=== PATIENT | male | born 1965 | race Caucasian/White ===

== ENCOUNTER 2018-09-01 06:05 | Inpatient (IN) | payer OTHER | END 2018-09-01 08:00 | disposition home or self-care (01) | LOC: FM/S 06:05 ==

== ENCOUNTER 2018-10-06 07:36 | Inpatient (IN) | payer OTHER ==
[2018-10-02 16:19] VITALS: BMI 42.9
[2018-10-06] MEDS ORDERED: PROMETHAZINE HCL 25 MG/1 ML VIAL IVPUSH PRN (07:47)
--- NOTE | 2018-10-06 08:10 | HP ---
Admitting History and Physical - Admission Chief Complaint: Morbid obesity History Source: Patient Limitations to Obtaining History: No Limitations - Past Medical History Cardiovascular: Yes: HTN, Hyperlipdemia Additional Past Medical History: Right hand bacterial infection Left orbital trauma at 5 years old - Past Surgical History Additional Past Surgical History: Left orbit trauma- reconstruction - Smoking History Smoking history: Current some day smoker Have you smoked in the past 12 months: Yes Aproximately how many cigarettes per day: 4 - Alcohol/Substance Use Hx Alcohol Use: Yes (RARE) Home Medications - Allergies Allergies/Adverse Reactions: Allergies Allergy/AdvReac Type Severity Reaction Status Date / Time No Known Allergies Allergy Verified 09/29/18 15:13 - Home Medications Home Medications: Ambulatory Orders Amlodipine Besylate [Norvasc -] 20 mg PO DAILY 08/29/18 Fenofibrate 40 mg PO DAILY 08/29/18 Aspirin [ASA -] 325 mg PO DAILY 09/29/18 Famotidine [Pepcid] 20 mg PO BID #60 tablet 10/06/18 Oxycodone HCl/Acetaminophen [Percocet 5-325 mg Tablet] 1 - 2 tab PO Q6H #28 tab MDD 4 10/06/18 Family Disease History - Family Disease History Family History: Unremarkable Review of Systems - Review of Systems Constitutional: denies: Chills, Fever HENT: reports: No Symptoms Neck: reports: No Symptoms Cardiovascular: reports: No Symptoms Respiratory: reports: No Symptoms Gastrointestinal: reports: No Symptoms Neurological: reports: No Symptoms Pain Intensity: 0 Physical Examination Constitutional: Yes: Calm, Obese HENT: Yes: WNL Cardiovascular: Yes: WNL Respiratory: Yes: WNL Gastrointestinal: Yes: Soft, Abdomen, Obese. No: Tenderness Neurological: Yes: Alert, Oriented Problem List - Problems (1) Morbid obesity due to excess calories Code(s): E66.01 - MORBID (SEVERE) OBESITY DUE TO EXCESS CALORIES (2) Hypertension Code(s): I10 - ESSENTIAL (PRIMARY) HYPERTENSION Qualifiers: Hypertension type: unspecified Qualified Code(s): I10 - Essential (primary ) hypertension (3) Hyperlipidemia Code(s): E78.5 - HYPERLIPIDEMIA, UNSPECIFIED Qualifiers: Hyperlipidemia type: unspecified Qualified Code(s): E78.5 - Hyperlipidemia , unspecified Assessment/Plan Laparoscopic possible open vertical sleeve gastrectomy possible liver biopsy possible upper endoscopy
[2018-10-06] MEDS ORDERED: MIDAZOLAM HCL 2 MG/2 ML SINGLE DOSE VIAL ONE (09:53)
[2018-10-06] MEDS ORDERED: PROPOFOL 20 ML ONE ×2 (09:53→12:01)
[2018-10-06] MEDS ORDERED: fentaNYL CITRATE 250 MCG/5 ML VIAL ONE (09:53)
[2018-10-06] MEDS ORDERED: ceFAZolin SODIUM 1 GM VIAL ONE (09:53)
[2018-10-06] MEDS ORDERED: ROCURONIUM BROMIDE 50 MG/5 ML VIAL ONE (09:53)
[2018-10-06] MEDS ORDERED: NEOSTIGMINE METHYLSULFATE 0.5 MG/ML - 10 ML MDV ONE ×2 (09:53→11:00)
[2018-10-06] MEDS ORDERED: ePHEDrine SULFATE 50 MG/1 ML AMPULE ONE (09:54)
[2018-10-06] MEDS ORDERED: DEXAMETHASONE SOD PHOSPHATE 4 MG/1 ML VIAL ONE (09:54)
[2018-10-06] MEDS ORDERED: ONDANSETRON 4 MG/2 ML VIAL ONE ×2 (09:54)
[2018-10-06] MEDS ORDERED: SUCCINYLCHOLINE CHLORIDE 200 MG/10 ML VIAL ONE (09:56)
[2018-10-06] MEDS ORDERED: DESFLURANE GAS 240 ML BOTTLE IH ONE (10:45)
[2018-10-06] MEDS ORDERED: BUPIVACAINE HCL/PF 2.5 MG/ML - 30 ML VIAL IJ ONE (10:55)
[2018-10-06] MEDS ORDERED: GLYCOPYRROLATE 0.2 MG/1 ML VIAL ONE ×3 (11:00)
[2018-10-06] MEDS ORDERED: BUPIVACAINE HCL/PF 0.25% (2.5MG/ML) 10 ML VIAL IJ ONE (11:40)
[2018-10-06] MEDS ORDERED: ACETAMINOPHEN INJECTION 100 ML IVPB ONE (11:47)
[2018-10-06] MEDS ORDERED: METOCLOPRAMIDE HCL INJECTION 10 MG/2 ML VIAL ONE (11:47)
[2018-10-06] MEDS ORDERED: FAMOTIDINE 20 MG/50 ML IVPB 20 MG/50 ML MG IVPB ONE (11:47)
--- NOTE | 2018-10-06 11:50 | OP ---
Operative Note - Note: Operative Date: 10/06/18 Pre-Operative Diagnosis: Morbid obesity. Hypertension. BMI 42.9 Operation: Diagnostic laparoscopy. Laparoscopic vertical sleeve gastrectomy. Laparoscopic wedge liver biopsy Post-Operative Diagnosis: Same as Pre-op (as well as hepatomegaly) Surgeon: Yasir Martel Return Checker: Artur Mcmillan Anesthesia: General Specimens Removed: Greater curvature of stomach. liver biopsy Estimated Blood Loss (mls): 30 Drains & Tubes with Location: 36 fr bougie Operative Report Dictated: Yes
[2018-10-06] MEDS ORDERED: FUROSEMIDE 40 MG/4 ML INJECTABLE VIAL ONE (12:21)
--- NOTE | 2018-10-06 13:35 | SPEC ---
DATE OF OPERATION: 10/06/2018 SURGEON: Yasir Martel MD PARAPROFESSIONAL INTERPRETER: Artur Mcmillan MD PREOPERATIVE DIAGNOSES: 1. Morbid obesity. 2. Hypertension. 3. Body mass index of 42.9. POSTOPERATIVE DIAGNOSES: 1. Morbid obesity. 2. Hypertension. 3. Body mass index of 42.9. 4. Hepatomegaly. PROCEDURE: 1. Diagnostic laparoscopy. 2. Laparoscopic vertical sleeve gastrectomy. 3. Laparoscopic wedge liver biopsy. SPECIMENS: 1. Greater curvature of the stomach. 2. Liver biopsy. ESTIMATED BLOOD LOSS: 30 mL. DRAIN: None. ANESTHESIA: GET. BOUGIE SIZE: [id number]. REASON FOR PROCEDURE: This is a 53-year-old male who presents for weight loss options. After describing different options, he decided to proceed with laparoscopic, possible open, vertical sleeve gastrectomy, possible liver biopsy, and upper endoscopy. RISKS AND BENEFITS: After describing the different options for weight loss management, the patient decided to proceed with a laparoscopic, possible open vertical sleeve gastrectomy. The patient was seen by the respective subspecialties and cleared for surgery. The risks and benefits of the procedure were explained. These included bleeding, infection, hernia, LA, DVT, PE, injury to surrounding structures including the liver, colon, bowel, spleen, esophagus, vessel injury, nerve injury, weight regain, gastric leak, staple line leak, sleeve leak, obstruction, vitamin deficiency, hair loss and as some of the possible complications. The patient understood and signed informed consent. DESCRIPTION OF PROCEDURE: The patient was placed supine on the operating room table. The patient underwent general endotracheal intubation. The arms were brought out at 90 degrees and secured. A footboard was placed and the legs were secured laterally with padding. The abdomen was prepped and draped in the usual sterile fashion. A timeout was performed. An incision was made in the left upper quadrant and a Veress needle inserted. Pneumoperitoneum was established. Subsequently, the Veress needle was removed and a 5-mm trocar was placed under direct visualization with the laparoscope. The laparoscopic camera was then inserted and inspection of the abdominal cavity was performed. An incision was then made in the supraumbilical area and a 15-mm trocar was placed under direct visualization. A 5-mm trocar was then placed in the right upper quadrant and a 5-mm trocar was placed below the left subcostal margin. A stab wound was made in the subxiphoid area and a Cele clamp inserted and removed to dilate the tract. A Kae liver retractor was inserted. The post was secured at the bedside by the nursing staff. The patient was placed in steep reverse Trendelenburg position and the Kae liver retractor was used to secure the liver towards the anterior abdominal wall. The pylorus was identified and 6 cm proximal to it, the lesser sac was entered using the LigaSure device. All lateral attachments to the greater curvature of the stomach, including the short gastric vessels, were ligated using the LigaSure device toward the gastrosplenic and gastrophrenic ligaments. Once this was done in its entirety, it was confirmed that all tubes within the nasal or oropharyngeal cavity, including a temperature probe, was removed by Anesthesia. The bougie was then inserted by Anesthesia. Transection of the stomach was then begun staying adjacent to the bougie but away from the angularis. Transection of the stomach was performed near the portion of the stomach where the lesser sac was entered. Two laparoscopic Endo-RADHA black skye were used at this location. Laparoscopic Endo RADHA purple staple loads were then used for the remainder of the transection until the greater curvature of the stomach was fully transected. This was done staying close to the bougie. Care was taken to stay away from the angle of His cephalad. The staple line was then inspected. Hemostasis was identified. A leak test was then performed. It was clamped distally to the staple line. Irrigation solution was placed in the left upper quadrant and air was insufflated by Anesthesia into the sleeve. No leaks were identified. No obstruction was identified. This was done through the entirety of the staple line. In addition, an upper endoscopy was performed. The endoscope was placed into the patients mouth and the entirety of the esophagus, GE junction, gastric pouch and staple line were inspected. No obstruction or leak was noted. The stomach was suctioned and the endoscope removed fully intact. At this point, the irrigation solution was suctioned and again, hemostasis was noted. A wedge liver biopsy was then performed. The left lobe of the liver was identified and a portion of the edge was grasped. Using electrocautery, a wedge of the liver was excised. This was removed and sent off the field as specimen. Hemostasis at the site of the wedge liver biopsy was attained using electrocautery. The 15-mm supraumbilical trocar was then removed and the greater curvature specimen removed from the site using a sponge stick mendez. The specimen was inspected and a Veress needle inserted. The specimen insufflated adequately and no leak was identified. The staple line was noted to be intact. A Casimiro-Edie device was then used to close the fascia with a 0 Vicryl suture at the site. Again, hemostasis was noted. The Kae liver retractor was then removed under direct visualization. Pneumoperitoneum was desufflated and the fascial sutures were secured. Hemostasis was noted at all incision sites and Marcaine was injected at all incision sites. All incision sites were closed using 4-0 Biosyn. Sterile dressings were applied. The patient tolerated the procedure well and was transferred to the recovery room in stable condition. The patient was transferred to telemetry for further monitoring. Paul TORRES/[id number]
[2018-10-06 14:22] LABS: HEMATOCRIT 40.4 % (35.4-49); HEMOGLOBIN 13.4 GM/dl (11.7-16.9); MCHC 33.2 g/dl (32.0-35.9); MEAN CELL VOLUME 87.6 fl (80-96); PLATELET COUNT 273 K/MM3 (134-434); RBC 4.62 M/mm3 (4.00-5.60); RDW 13.5 % (11.9-15.9); WHITE BLOOD COUNT 12.4 K/mm3 (4.0-10.8)
[2018-10-06 14:46] LABS: ALBUMIN 4.2 g/dl (3.4-5.0); ALK PHOS 29 U/L (45-117); ANION GAP 12 MMOL/L (8-16); BILIRUBIN,TOTAL 0.4 mg/dl (0.2-1); BLOOD UREA NITROGEN 23 mg/dl (7-18); CALCIUM 8.4 mg/dl (8.5-10); CHLORIDE 100 mmol/L (98-107); CO2 24 mmol/L (21-32); CREATININE 1.4 mg/dl (0.55-1.3); GLUCOSE,RANDOM 165 mg/dl (74-106); POTASSIUM 4.4 mmol/L (3.5-5.1); SGOT/AST 201 U/L (15-37); SGPT/ALT 237 U/L (13-61); SODIUM 136 mmol/L (136-145); TOT PROT 7.4 g/dl (6.4-8.2)
[2018-10-06] MEDS: HYDROmorphone HCL CARPU-JECT 2 MG/1 ML DISP.SYRIN IVPB PRN (18:16)
[2018-10-06] MEDS: ONDANSETRON 4 MG/2 ML VIAL IVPUSH SCH ×3 (18:23→23:47)
[2018-10-06] MEDS: METOCLOPRAMIDE HCL INJECTION 10 MG/2 ML VIAL IVPUSH SCH ×2 (18:23→23:47)
[2018-10-06] MEDS: ACETAMINOPHEN 1000 MG/100 ML VIAL (NON FORMULARY) IVPB SCH ×2 (18:24→23:47)
[2018-10-06] MEDS: ENOXAPARIN NA (PORCINE) 40 MG/0.4 ML DISP.SYRIN SQ SCH (21:21)
[2018-10-06] MEDS: FAMOTIDINE 20 MG/50 ML IVPB 20 MG/50 ML MG IVPB SCH (21:21)
[2018-10-07] MEDS: HYDROmorphone HCL CARPU-JECT 2 MG/1 ML DISP.SYRIN IVPB PRN (05:00)
[2018-10-07] MEDS ORDERED: METOCLOPRAMIDE HCL INJECTION 10 MG/2 ML VIAL ONE (05:58)
[2018-10-07] MEDS: ACETAMINOPHEN 1000 MG/100 ML VIAL (NON FORMULARY) IVPB SCH ×2 (06:10→08:14)
[2018-10-07] MEDS: ONDANSETRON 4 MG/2 ML VIAL IVPUSH SCH ×7 (06:10→23:58)
[2018-10-07] MEDS: METOCLOPRAMIDE HCL INJECTION 10 MG/2 ML VIAL IVPUSH SCH ×5 (06:10→23:58)
[2018-10-07 07:02] LABS: HEMATOCRIT 36.7 % (35.4-49); HEMOGLOBIN 12.4 GM/dl (11.7-16.9); MCH 29.4 pg (25.7-33.7); MCHC 33.8 g/dl (32.0-35.9); MEAN PLT VOLUME 7.6 fl (7.5-11.1); PLATELET COUNT 274 K/MM3 (134-434); RBC 4.21 M/mm3 (4.00-5.60); RDW 13.5 % (11.9-15.9); WHITE BLOOD COUNT 12.3 K/mm3 (4.0-10.8)
[2018-10-07 07:14] LABS: ALBUMIN 3.8 g/dl (3.4-5.0); ALK PHOS 27 U/L (45-117); ANION GAP 10 MMOL/L (8-16); BILIRUBIN,TOTAL 0.6 mg/dl (0.2-1); BLOOD UREA NITROGEN 22 mg/dl (7-18); CALCIUM 8.7 mg/dl (8.5-10); CHLORIDE 101 mmol/L (98-107); CO2 27 mmol/L (21-32); CREATININE 1.1 mg/dl (0.55-1.3); GLUCOSE,RANDOM 131 mg/dl (74-106); POTASSIUM 4.3 mmol/L (3.5-5.1); SGOT/AST 112 U/L (15-37); SGPT/ALT 178 U/L (13-61); SODIUM 138 mmol/L (136-145); TOT PROT 7.1 g/dl (6.4-8.2)
[2018-10-07] MEDS: SODIUM CHLORIDE 1,000 ML IV SCH ×3 (08:14→15:30)
--- NOTE | 2018-10-07 09:05 | PN ---
Progress Note (short form) - Note Progress Note: ANESTHESIA POSTOP 53 YO male s/p lap gastric sleeve and GETA Patient sitting comfortably in chair. No complaints. Says he's grateful for everyone's care. VSS, Afebrile Encouraged IS and ambulation. No anesthetic complications
[2018-10-07] MEDS: FAMOTIDINE 20 MG/50 ML IVPB 20 MG/50 ML MG IVPB SCH ×2 (09:29→21:01)
[2018-10-07] MEDS: ENOXAPARIN NA (PORCINE) 40 MG/0.4 ML DISP.SYRIN SQ SCH ×2 (09:29→21:01)
[2018-10-07] MEDS ORDERED: oxyCODONE HCL 5 MG TABLET PO PRN (14:18)
--- NOTE | 2018-10-07 14:38 | PN ---
Progress Note (short form) - Note Progress Note: POD 1 Pain controlled No nausea Vital Signs Period Temp Pulse Resp BP Sys/Cerrato Pulse Ox Last 24 Hr 95 F-98.5 F 75-86 16-20 119-152/64-80 90-98 O2 saturation 99% on 4 liters O2; O2 saturation 85-88% on room air CBC,CMP WBC 12.3 K/mm3 (4.0-10.8) H 10/07/18 06:30 RBC 4.21 M/mm3 (4.00-5.60) 10/07/18 06:30 Hgb 12.4 GM/dl (11.7-16.9) 10/07/18 06:30 Hct 36.7 % (35.4-49) 10/07/18 06:30 MCV 87.0 fl (80-96) 10/07/18 06:30 MCH 29.4 pg (25.7-33.7) 10/07/18 06:30 MCHC 33.8 g/dl (32.0-35.9) 10/07/18 06:30 RDW 13.5 % (11.9-15.9) 10/07/18 06:30 Plt Count 274 K/MM3 (134-434) 10/07/18 06:30 MPV 7.6 fl (7.5-11.1) 10/07/18 06:30 Sodium 138 mmol/L (136-145) 10/07/18 06:30 Potassium 4.3 mmol/L (3.5-5.1) 10/07/18 06:30 Chloride 101 mmol/L (98-107) 10/07/18 06:30 Carbon Dioxide 27 mmol/L (21-32) 10/07/18 06:30 Anion Gap 10 MMOL/L (8-16) 10/07/18 06:30 BUN 22 mg/dl (7-18) H 10/07/18 06:30 Creatinine 1.1 mg/dl (0.55-1.3) 10/07/18 06:30 Creat Clearance w eGFR 70.29 (>60) 10/07/18 06:30 Random Glucose 131 mg/dl (74-106) H 10/07/18 06:30 Calcium 8.7 mg/dl (8.5-10) 10/07/18 06:30 Total Bilirubin 0.6 mg/dl (0.2-1) 10/07/18 06:30 AST 112 U/L (15-37) H 10/07/18 06:30 ALT 178 U/L (13-61) H 10/07/18 06:30 Alkaline Phosphatase 27 U/L (45-117) L 10/07/18 06:30 Total Protein 7.1 g/dl (6.4-8.2) 10/07/18 06:30 Albumin 3.8 g/dl (3.4-5.0) 10/07/18 06:30 UGI: no leak/obstruction Clears Spoke with Dr Camarillo - pulmonology CXR ordered Likely atelectasis Encouraged incentive spirometer and deep breathing Ambulation Will observe Problem List - Problems (1) Morbid obesity due to excess calories Code(s): E66.01 - MORBID (SEVERE) OBESITY DUE TO EXCESS CALORIES (2) Hypertension Code(s): I10 - ESSENTIAL (PRIMARY) HYPERTENSION Qualifiers: Hypertension type: unspecified Qualified Code(s): I10 - Essential (primary ) hypertension (3) Hyperlipidemia Code(s): E78.5 - HYPERLIPIDEMIA, UNSPECIFIED Qualifiers: Hyperlipidemia type: unspecified Qualified Code(s): E78.5 - Hyperlipidemia , unspecified
--- NOTE | 2018-10-07 17:44 | PN ---
Progress Note (short form) - Note Progress Note: PULMONARY CONSULTATION DICTATED 10/07/18 IMP HYPOXEMIA LIKELY SECONDARY TO POST-OP ATELECTASIS MORBID OBESITY S/P LAP SLEEVE DEBORAH TOBACCO ABUSE PLAN INCENTIVE SPIROMETER INHALED BRONCHODILATORS O2 BIPAP AT NIGHT AND PRN DVT PROPHYLAXIS ABG OUTPATIENT LOW DOSE CHEST CT FOR LUNG CANCER SCREENING DR BARRON Problem List - Problems (1) Hypoxemia Code(s): R09.02 - HYPOXEMIA (2) Hyperlipidemia Code(s): E78.5 - HYPERLIPIDEMIA, UNSPECIFIED Qualifiers: Hyperlipidemia type: unspecified Qualified Code(s): E78.5 - Hyperlipidemia , unspecified (3) Hypertension Code(s): I10 - ESSENTIAL (PRIMARY) HYPERTENSION Qualifiers: Hypertension type: unspecified Qualified Code(s): I10 - Essential (primary ) hypertension (4) Morbid obesity due to excess calories Code(s): E66.01 - MORBID (SEVERE) OBESITY DUE TO EXCESS CALORIES
[2018-10-07] MEDS: LISINOPRIL 20 MG TABLET (FP) PO SCH (18:37)
[2018-10-07] MEDS: amLODIPine BESYLATE 5 MG TABLET (FP) PO SCH (18:37)
[2018-10-07] MEDS: FENOFIBRIC ACID 135 MG CAP PO SCH (18:38)
[2018-10-07] MEDS: ALBUTEROL SO4 2.5/IPRATROPIUM 0.5 INH SOL 3 ML VIAL.NEB. NEB SCH (19:50)
[2018-10-07 21:43] LABS: ARTERIAL BLD GAS O2 SATURATION 94.8 % (95-98); ARTERIAL BLOOD GAS BASE EXCESS 3.6 meq/l (-2-2); ARTERIAL BLOOD GAS PCO2 47.5 mmHg (35-45)
[2018-10-08] MEDS: ONDANSETRON 4 MG/2 ML VIAL IVPUSH SCH ×5 (04:30→20:17)
[2018-10-08] MEDS: METOCLOPRAMIDE HCL INJECTION 10 MG/2 ML VIAL IVPUSH SCH ×3 (05:41→18:03)
[2018-10-08] MEDS: ALBUTEROL SO4 2.5/IPRATROPIUM 0.5 INH SOL 3 ML VIAL.NEB. NEB SCH ×3 (08:45→16:50)
[2018-10-08] MEDS: ENOXAPARIN NA (PORCINE) 40 MG/0.4 ML DISP.SYRIN SQ SCH ×2 (09:07→21:52)
[2018-10-08] MEDS: amLODIPine BESYLATE 5 MG TABLET (FP) PO SCH (09:08)
[2018-10-08] MEDS: FAMOTIDINE 20 MG/50 ML IVPB 20 MG/50 ML MG IVPB SCH ×2 (09:08→21:52)
[2018-10-08] MEDS: LISINOPRIL 20 MG TABLET (FP) PO SCH (09:08)
[2018-10-08] MEDS: FENOFIBRIC ACID 135 MG CAP PO SCH (09:08)
--- NOTE | 2018-10-08 11:46 | PN ---
Progress Note (short form) - Note Progress Note: POD 2 Pain controlled No nausea Vital Signs Period Temp Pulse Resp BP Sys/Cerrato Pulse Ox Last 24 Hr 97.9 F-98.7 F 60-79 19-19 122-142/57-75 90-98 Abd soft Tolerating clears Oxygen saturation 92 % on room air CXR: atelectasis Pulmonary following Incentive spirometer Ambulate Await pulmonary clearance for discharge Problem List - Problems (1) Morbid obesity due to excess calories Code(s): E66.01 - MORBID (SEVERE) OBESITY DUE TO EXCESS CALORIES (2) Hypertension Code(s): I10 - ESSENTIAL (PRIMARY) HYPERTENSION Qualifiers: Hypertension type: unspecified Qualified Code(s): I10 - Essential (primary ) hypertension (3) Hyperlipidemia Code(s): E78.5 - HYPERLIPIDEMIA, UNSPECIFIED Qualifiers: Hyperlipidemia type: unspecified Qualified Code(s): E78.5 - Hyperlipidemia , unspecified
--- NOTE | 2018-10-08 12:22 | PN ---
Progress Note (short form) - Note Progress Note: PULMONARY VSS/AFEBRILE/SPO2 ROOM AIR 81% ANICTERIC BIBASILAR INSP CRACKLES S1S2 OBESE NO EDEMA LABS/MEDS/IMAGES REVIEWED IMP HYPOXEMIA LIKELY SECONDARY TO POST-OP ATELECTASIS MORBID OBESITY S/P LAP SLEEVE DEBORAH TOBACCO ABUSE PLAN INCENTIVE SPIROMETER ATHOME INHALED BRONCHODILATORS BIPAP AT NIGHT AND PRN (PATIENT HAS SET UP AT HOME) DVT PROPHYLAXIS OUTPATIENT LOW DOSE CHEST CT FOR LUNG CANCER SCREENING NO OBJECTION TO DISCHARGE NEEDS HOME O2 PRIOR TO DISCHARGE Real MORENO MD
--- NOTE | 2018-10-08 12:48 | CONS ---
DATE OF CONSULTATION: 10/07/2018 REFERRING PHYSICIAN: Yasir Matrel MD HISTORY OF PRESENT ILLNESS: The patient is a 53-year-old white male with a past medical history of hypertension, hyperlipidemia, obstructive sleep apnea, morbid obesity longstanding history of tobacco use of approximately 1 pack per day for many years and stopped approximately 2-3 days prior to surgery, admitted to [facility] on October 06 for laparoscopic gastric sleeve. Patient underwent a laparoscopic gastric sleeve on October 06 without complications. Hospitalization was significant for October 07 when he was noted to be hypoxic on room air with O2 saturation in the mid 80s at rest as well as with ambulation, which was improved with supplemental O2. He denied any complaints of chest pain, nausea, vomiting, or diaphoresis. He denied any hemoptysis. He denied any significant shortness of breath. Of note, this patient has not been able to fully use his incentive spirometer secondary to abdominal discomfort. He denies any chronic cough, hemoptysis. He denies any history of COPD or asthma in the past, although his primary care physician placed him on inhaled bronchodilators. He denies any history of recent travel. There is no history of DVT or PE in the past. There is no history of occupational exposures to chemicals or fumes. PAST MEDICAL HISTORY: Again includes hypertension, hyperlipidemia, obstructive sleep apnea,likely copd SOCIAL HISTORY: Longstanding history of tobacco use 1 pack per day for many years and stopped approximately a couple of days prior to admission. No occupational exposures. REVIEW OF SYSTEMS: No orthopnea, no PND, no chest pain, no palpitations, no shortness of breath, no cough, no hemoptysis. Positive for abdominal discomfort. No lower extremity edema. MEDICATIONS: Include Zofran, Prinivil, Lovenox, Duo-Neb, Norvasc, normal saline , famotidine, oxycodone, and Reglan. PHYSICAL EXAMINATION: General: The patient is a morbidly obese male awake, alert, in no acute distress. Vital signs: He is afebrile, O2 saturation 96% on nasal cannula, heart rate is 60. HEENT: Head is normocephalic atraumatic. Neck: Supple. Heart: Regular with S1, S2. Chest: Diminished breath sounds bilaterally, a few bibasilar crackles. Abdomen: Soft. Bowel sounds positive. Extremities: No cyanosis or edema. LABORATORIES: WBC is 12.3, hemoglobin 12.4, hematocrit 36.7, platelet count of 274,000. Blood gas 7.40, pCO2 47, pO2 74, bicarbonate 28, and saturation 94. BUN 22, creatinine 1.1, ALT 178, AST 116. Chest x-ray with poor inspiratory effort, atelectatic changes at the bases. IMPRESSION: 1. Hypoxemia most likely secondary to postoperative atelectasis. 2. Morbid obesity status post lap sleeve. 3. Obstructive sleep apnea. 4. Likely COPD 5. Tobacco abuse. 5. Hyperlipidemia. PLAN: Incentive spirometer, inhaled bronchodilators, supplemental O2, BiPAP at night as well as p.r.n., DVT prophylaxis, analgesics, outpatient low dose Chest CT for lung cancer screening as this is a patient is a high risk secondary to longstanding history of tobacco use. JOSE A BARRON M.D. DARSHANA/[id number] MTDD
--- NOTE | 2018-10-08 14:35 | CONSULT ---
Consultation: REQUESTING PROVIDER: Dr. Jeremy Martel CONSULT REQUEST: We have been asked to medically evaluate this patient post- operatively for hypoxia. HISTORY OF PRESENT ILLNESS: 53 year-old male with a PMH significant for HTN, COPD, DEBORAH, and morbid obesity s /p laparoscopic vertical sleeve gastrectomy on 10/06/[address] Jeremy Martel. Today is POD #2. Patient has been observed to be hypoxic during the post- operative period. Pre post testing today showed SpO2 92% at rest on room air, and SpO2 85% at rest with flat surface ambulation. REVIEW OF SYSTEMS: CONSTITUTIONAL: Absent: fever, chills, diaphoresis, generalized weakness, malaise, loss of appetite, weight change HEENT: Absent: rhinorrhea, nasal congestion, throat pain, throat swelling, difficulty swallowing, mouth swelling, ear pain, eye pain, visual changes CARDIOVASCULAR: Absent: chest pain, syncope, palpitations, irregular heart rate, lightheadedness , peripheral edema RESPIRATORY: Absent: cough, shortness of breath, dyspnea with exertion, orthopnea, wheezing, stridor, hemoptysis GASTROINTESTINAL: Absent: abdominal pain, abdominal distension, nausea, vomiting, diarrhea, constipation, melena, hematochezia GENITOURINARY: Absent: dysuria, frequency, urgency, hesitancy, hematuria, flank pain, genital pain MUSCULOSKELETAL: Absent: myalgia, arthralgia, joint swelling, back pain, neck pain SKIN: Absent: rash, itching, pallor HEMATOLOGIC/IMMUNOLOGIC: Absent: easy bleeding, easy bruising, lymphadenopathy, frequent infections ENDOCRINE: Absent: unexplained weight gain, unexplained weight loss, heat intolerance, cold intolerance NEUROLOGIC: Absent: headache, focal weakness or paresthesias, dizziness, unsteady gait, seizure, mental status changes, bladder or bowel incontinence PSYCHIATRIC: Absent: anxiety, depression, suicidal or homicidal ideation, hallucinations. PHYSICAL EXAMINATION Vital Signs - 24 hr 10/07/18 10/07/18 10/07/18 18:18 20:43 22:00 Temperature 98.6 F 98.7 F Pulse Rate 78 79 Respiratory 19 19 19 Rate Blood Pressure 142/57 L 134/63 O2 Sat by Pulse 98 98 94 L Oximetry (%) 10/08/18 10/08/18 10/08/18 01:00 01:08 06:00 Temperature 98.6 F 97.9 F Pulse Rate 78 76 Respiratory 19 19 Rate Blood Pressure 122/75 130/72 O2 Sat by Pulse 90 L Oximetry (%) 10/08/18 10/08/18 10/08/18 06:22 11:19 13:14 Temperature Pulse Rate 60 70 Respiratory Rate Blood Pressure O2 Sat by Pulse 96 92 L 85 L Oximetry (%) 10/08/18 14:02 Temperature 98.2 F Pulse Rate 69 Respiratory 19 Rate Blood Pressure 108/55 L O2 Sat by Pulse 91 L Oximetry (%) GENERAL: Awake, alert, and fully oriented, in no acute distress. LUNGS: Bibasilar crackles. HEART: Regular rate and rhythm ABDOMEN: Soft UPPER EXTREMITIES: 2+ pulses, warm, well-perfused. No cyanosis. No clubbing. Cap refill <2 seconds. No peripheral edema. LOWER EXTREMITIES: 2+ pulses, warm, well-perfused. No calf tenderness. No peripheral edema. NEUROLOGICAL: Cranial nerves II-XII intact. Normal speech. Normal gait. Laboratory Results - last 24 hr 10/07/18 20:20 Anticoagulation Therapy No Result Required. Puncture Site No Result Required. ABG pH 7.40 ABG pCO2 at Pt Temp 47.5 H ABG pO2 at Pt Temp 74.0 L ABG HCO3 28.7 H ABG O2 Sat (Measured) 94.8 L ABG O2 Content 17.3 ABG Base Excess 3.6 H Alden Test No Result Required. O2 Delivery Device No Result Required. Oxygen Flow Rate No Result Required. Vent Mode No Result Required. Vent Rate No Result Required. Mechanical Rate No Result Required. Pressure Support Vent No Result Required. Active Medications Generic Name Dose Route Start Last Admin Trade Name Jenaro PRN Reason Stop Dose Admin Albuterol/Ipratropium 1 amp 10/07/18 20:00 10/08/18 12:58 Duoneb - NEB 1 amp RQID LIDIA Administration Amlodipine Besylate 5 mg 10/07/18 18:15 10/08/18 09:08 Norvasc - PO 5 mg DAILY LIDIA Administration Enoxaparin Sodium 40 mg 10/06/18 22:00 10/08/18 09:07 Lovenox - SQ 40 mg BID LIDIA Administration Fenofibric Acid 135 mg 10/07/18 18:15 10/08/18 09:08 Trilipix - PO 135 mg DAILY LIDIA Administration Famotidine/Sodium Chloride 20 mg in 50 mls @ 100 mls/hr 10/06/18 22:00 09:08 Pepcid 20 Mg Premixed Ivpb - IVPB 100 mls/hr BID LIDIA Administration Sodium Chloride 1,000 mls @ 75 mls/hr 10/07/18 14:30 10/07/18 15:30 Normal Saline - IV 75 mls/hr ASDIR LIDIA Administration Lisinopril 20 mg 10/07/18 18:15 10/08/18 09:08 Prinivil PO 20 mg DAILY LIDIA Administration Metoclopramide HCl 10 mg 10/06/18 12:00 10/08/18 12:58 Reglan Injection - IVPUSH 10 mg Q6H LIDIA Administration Ondansetron HCl 4 mg 10/06/18 12:00 10/08/18 12:58 Zofran Injection IVPUSH 4 mg Q4H LIDIA Administration Oxycodone/Acetaminophen 1 combo 10/07/18 18:10 10/08/18 09:12 Percocet 5/325 - PO 1 combo Q4H PRN Administration PAIN 4-10 ASSESSMENT/PLAN 53 year-old male with a PMH significant for HTN, COPD, DEBORAH, and morbid obesity s /p laparoscopic vertical sleeve gastrectomy on 10/06/[address] Jeremy Martel. Today is POD #2. Patient has been observed to be hypoxic during the post- operative period. Hypoxia --multifactorial: COPD, morbid obesity, post-op atelectasis COPD --diagnosed on 08/15/[address] Darrell Hernandez, manager completions; started on Breo Ellipta and Spiriva; will resume these meds today --pre post testing today showed SpO2 92% at rest on room air and SpO2 85% at rest with flat surface ambulation --continue nebulizers --titrate O2 to SpO2 >92% --daily bedside peakflow --incentive spirometer --chest physiotherapy BID Hypertension --continue amlodipine DEBORAH --continue CPAP at night s/p sleeve gastrectomy --per surgical team Dispo: We will continue to follow the patient. Thank you for this consultative opportunity. Visit type - Emergency Visit Emergency Visit: No - New Patient This patient is new to me today: Yes Date on this admission: 10/08/18 - Critical Care Critical Care patient: No
[2018-10-08] MEDS: SODIUM CHLORIDE 1,000 ML IV SCH (14:40)
--- NOTE | 2018-10-08 15:24 | PATH ---
Surgical Pathology Report Patient Name: MAXIME FINNEGAN Med. Rec. #: [id number] /Age/Gender: 1965 (Age: 53) / M Account: [id number] Location: ON LICENSE OF [facility] MED-SURG Taken: 10/06/2018 Received: 10/06/2018 Reported: 10/08/2018 Physicians: Yasir Martel M.D. Specimen(s) Received A: GREATER CURVATURE STOMACH B: LIVER BIOPSY Clinical History Morbid obesity Final Diagnosis A. GREATER CURVATURE OF STOMACH, EXCISION: PORTION OF STOMACH SHOWING MILD CHRONIC INFLAMMATION. IMMUNOSTAIN IS NEGATIVE FOR H.PYLORI ORGANISMS. B. LIVER, BIOPSY: MODERATE STEATOSIS (~60%) AND MILD STEATOHEPATITIS (GRADE 1). TRICHROME STAIN SHOWS NO APPRECIABLE INCREASE IN FIBROSIS. IRON STAIN IS NEGATIVE. Electronically Signed Bhavana Jha M.D. Gross Description A. Received in formalin, labeled "greater curvature of stomach," is a 111 gram, 21.5 x 2.8 x 2.7 cm. portion of stomach with a stapled margin of resection. The serosa is alexander-moon with minimal attached fat. The mucosa is alexander-pink with normal folds. No mucosal masses are identified. Gold Layer sections are submitted in one cassette. B. Received in formalin labeled "liver biopsy," is a 3.5 x 1.7 x 1.0 cm alexander portion of soft tissue, consistent with a portion of liver. Gold Layer sections are submitted in one cassette. /10/07/2018 saudi10/07/2018
[2018-10-08] MEDS ORDERED: TIOTROPIUM BROMIDE 2.5 MCG (SPIRIVA) RESPIMAT INHALER IH SCH (17:45)
[2018-10-08] MEDS: ALBUTEROL SO4 0.083% IH SOL 2.5 MG/3 ML VIAL.NEB. NEB SCH (20:17)
[2018-10-09] MEDS: ONDANSETRON 4 MG/2 ML VIAL IVPUSH SCH ×4 (03:40→13:42)
[2018-10-09] MEDS: METOCLOPRAMIDE HCL INJECTION 10 MG/2 ML VIAL IVPUSH SCH ×3 (06:29→13:42)
--- NOTE | 2018-10-09 08:31 | PN ---
Physical Exam: SUBJECTIVE: Patient seen and examined OBJECTIVE: Vital Signs Period Temp Pulse Resp BP Sys/Cerrato Pulse Ox Last 24 Hr 97.4 F-98.2 F 60-77 19-19 108-147/52-77 85-96 GENERAL: The patient is awake, alert, and fully oriented, in no acute distress. HEAD: Normal with no signs of trauma. EYES: PERRL, extraocular movements intact, sclera anicteric, conjunctiva clear. No ptosis. ENT: Ears normal, nares patent, oropharynx clear without exudates, moist mucous membranes. NECK: Trachea midline, full range of motion, supple. LUNGS: Breath sounds equal, clear to auscultation bilaterally, no wheezes, no crackles, no accessory muscle use. HEART: Regular rate and rhythm, S1, S2 without murmur, rub or gallop. ABDOMEN: Soft, nontender, nondistended, normoactive bowel sounds, no guarding, no rebound, no hepatosplenomegaly, no masses. EXTREMITIES: 2+ pulses, warm, well-perfused, no edema. NEUROLOGICAL: Cranial nerves II through XII grossly intact. Normal speech, gait not observed. PSYCH: Normal mood, normal affect. SKIN: Warm, dry, normal turgor, no rashes or lesions noted Active Medications Generic Name Dose Route Start Last Admin Trade Name Jesusq PRN Reason Stop Dose Admin Albuterol Sulfate 1 amp 10/08/18 17:37 10/08/18 20:17 Ventolin 0.083% Nebulizer Soln - NEB 1 amp RQID [facility] Administration Amlodipine Besylate 5 mg 10/07/18 18:15 10/08/18 09:08 Norvasc - PO 5 mg DAILY [facility] Administration Enoxaparin Sodium 40 mg 10/06/18 22:00 10/08/18 21:52 Lovenox - SQ 40 mg BID [facility] Administration Fenofibric Acid 135 mg 10/07/18 18:15 10/08/18 09:08 Trilipix - PO 135 mg DAILY [facility] Administration Famotidine/Sodium Chloride 20 mg in 50 mls @ 100 mls/hr 10/06/18 22:00 21:52 Pepcid 20 Mg Premixed Ivpb - IVPB 100 mls/hr BID [facility] Administration Sodium Chloride 1,000 mls @ 75 mls/hr 10/07/18 14:30 10/08/18 14:40 Normal Saline - IV 75 mls/hr ASDIR [facility] Administration Lisinopril 20 mg 10/07/18 18:15 10/08/18 09:08 Prinivil PO 20 mg DAILY [facility] Administration Metoclopramide HCl 10 mg 10/06/18 12:00 10/09/18 06:29 Reglan Injection - IVPUSH 10 mg Q6H [facility] Administration Non-Formulary Medication 100 mcg 10/08/18 17:30 Fluticasone/Vilanterol [Breo Ellipta 100-25 Mcg Inh] PO DAILY [facility] Ondansetron HCl 4 mg 10/06/18 12:00 10/09/18 03:40 Zofran Injection IVPUSH Not Given Q4H [facility] Oxycodone/Acetaminophen 1 combo 10/07/18 18:10 10/09/18 04:48 Percocet 5/325 - PO 1 combo Q4H PRN Administration PAIN 4-10 Tiotropium [place] 2 puff 10/09/18 10:00 Spiriva Respimat IH DAILY [facility] ASSESSMENT/PLAN 53 year-old male with a PMH significant for HTN, COPD, DEBORAH, and morbid obesity s /p laparoscopic vertical sleeve gastrectomy on 10/06/[address] Jeremy Martel. Today is POD #3. Patient has been observed to be hypoxic during the post- operative period. Hypoxia --multifactorial: COPD, morbid obesity, post-op atelectasis COPD --diagnosed on 08/15/[address] Darrell Hernandez, tailing hand; started on Breo Ellipta and Spiriva; continue inhalers --pre post testing today showed SpO2 92% at rest on room air and SpO2 85% with flat surface ambulation, exercising on 2L NC rebounded to SpO2 95% --continue nebulizers --titrate O2 to SpO2 >92% --daily bedside peakflow --incentive spirometer --chest physiotherapy BID Hypertension --continue amlodipine DEBORAH --continue CPAP at night s/p sleeve gastrectomy --per surgical team Dispo: Patient will need continuous O2 at home due to COPD and desaturatoin to 85% with ambulation. Visit type - Emergency Visit Emergency Visit: No - New Patient This patient is new to me today: No - Critical Care Critical Care patient: No
[2018-10-09] MEDS: FAMOTIDINE 20 MG/50 ML IVPB 20 MG/50 ML MG IVPB SCH (09:07)
[2018-10-09] MEDS: amLODIPine BESYLATE 5 MG TABLET (FP) PO SCH (09:10)
[2018-10-09] MEDS: FENOFIBRIC ACID 135 MG CAP PO SCH (09:11)
[2018-10-09] MEDS: LISINOPRIL 20 MG TABLET (FP) PO SCH (09:11)
[2018-10-09] MEDS: ENOXAPARIN NA (PORCINE) 40 MG/0.4 ML DISP.SYRIN SQ SCH (09:11)
[2018-10-09] MEDS: ALBUTEROL SO4 0.083% IH SOL 2.5 MG/3 ML VIAL.NEB. NEB SCH ×2 (09:11→13:42)
[2018-10-09] MEDS ORDERED: TIOTROPIUM BROMIDE 2.5 MCG (SPIRIVA) RESPIMAT INHALER IH SCH (10:00)
[2018-10-09] MEDS ORDERED: FENOFIBRATE NANOCRYSTALLIZED 160 MG PO SCH (10:00)
[2018-10-09 10:42] VITALS: BP 119/62; PULSE 75; TEMP 98.3
--- NOTE | 2018-10-09 12:03 | DS ---
Physical Examination Vital Signs: Vital Signs Temperature 98.3 F 10/09/18 10:00 Pulse Rate 75 10/09/18 10:00 Respiratory Rate 19 10/09/18 10:00 Blood Pressure 119/62 10/09/18 10:00 O2 Sat by Pulse Oximetry (%) 92 L 10/09/18 10:00 Findings/Remarks: S/P Laparoscopic vetical sleeve gastrectomy Tolerated procedure well Had post operative low oxygen saturations Treated with oxygen No shortness of breath No chest pain UGI: no leak/obstruction Tolerated clears Seen by pulmonology Cleared for discharge on home oxygen Home oxygen arranged Discharge home Follow up in 1 week Follow up with pulmonology Constitutional: Yes: No Distress, Calm HENT: Yes: WNL Neck: Yes: WNL Labs: CBC, BMP 10/07/18 06:30 10/07/18 06:30 Discharge Summary Reason For Visit: MORBID OBESITY Current Active Problems Hepatomegaly (Acute) Hyperlipidemia (Acute) Hypertension (Acute) Hypoxemia (Acute) Morbid obesity due to excess calories (Acute) Condition: Stable - Instructions Diet, Activity, Other Instructions: [address] [facility], 1st Floor Yasir Martel M.D. [address] [facility], 5th Floor [address] [place] [address] Weight Loss & [place] [address] Robotic, Bariatric and General Surgery Postoperative Instructions for Bariatric Surgery Activity: Resume normal everyday activity as tolerated. You may walk and climb stairs without any limitation. We encourage you to walk as often as you can Do not lift anything more than 10 pounds for 8 weeks. At that time, you can return to full activity, including the gym, without limitation. Do not drive a motor vehicle while taking prescribes narcotic pain medication. Wound Care: If you have a bandage in place, leave it on for 3 days. At that time you may remove the outer bandage. If there are strips of tape on the skin after removing the outer bandage, leave them in place. They will fall off by themselves. Do not remove them. If there is clear glue on the skin after removing the outer bandage, leave it in place. Do not pick at it or peel it off. You may shower after taking the outer bandage off, 3 days after your surgery. If incisions become red, warm or open, please call the office. Diet: Continue a sugar-free, non-carbonated Clear liquid diet three times a day for the first week-Stage I diet. In addition, you should drink 8 ounces of water every hour. When drinking, sips should be slow and steady, not large and quick. After the first week, call the office to be advanced to the next dietary stage. Do not advance stages until instructed. Your diet will be advanced over the phone each week. Medications/Pain Management: You may resume previous medications unless told otherwise. The pills may be swallowed whole or broken if scored. You may take the prescribed narcotic pain medication as needed. If the narcotic medication is not needed for pain control, you may take Tylenol. Avoid all other pain medications including Advil, Ibuprofen, Motrin, Aspirin, Naprosyn, Aleve, Celebrex. You will receive Pepcid. Please take this twice a day as prescribed. Dizziness,Headaches/Gas Pain: Make sure you are getting enough fluids daily. Patients on diuretics or water pills may need medication adjusted. Some fluids such as broth or Gatorade may help. Gas pains are common in the first few weeks after surgery. At times they can be worse than surgical pain. Walking can help. You can also use Mylanta, Maalox, or Gas-X. Vomiting/Nausea: This may occur if you eat too fast, don't chew, or eat too much. Go back to fluids. If the vomiting or nausea persists, call the office. Constipation/Diarrhea: You may experience a change in bowel habits. Many things affect this, including a decrease in food intake, not enough fluid and taking pain medication. Some people experience diarrhea after the barium swallow in x-ray. If either persist, call the office. Follow up: Call the office at [phone] for an appointment 2 weeks after your surgical procedure. Disposition: HOME - Home Medications Comprehensive Discharge Medication List: Ambulatory Orders Amlodipine Besylate [Norvasc -] 20 mg PO DAILY 08/29/18 Aspirin [ASA -] 325 mg PO DAILY 09/29/18 Famotidine [Pepcid] 20 mg PO BID #60 tablet 10/06/18 Oxycodone HCl/Acetaminophen [Percocet 5-325 mg Tablet] 1 - 2 tab PO Q6H #28 tab MDD 4 10/06/18 Fenofibrate Nanocrystallized [Triglide] 160 mg PO DAILY 10/08/18 Fluticasone/Vilanterol [Breo Ellipta 100-25 Mcg INH] 100 mcg PO DAILY 10/08/18 Tiotropium [place] [Spiriva] 18 mcg IH DAILY 10/08/18
--- NOTE | 2018-10-09 12:06 | PN ---
Progress Note, Physician History of Present Illness: PULMONARY - Current Medication List Current Medications: Active Medications Albuterol Sulfate (Ventolin 0.083% Nebulizer Soln -) 1 amp NEB RQID [facility] Last Admin: 10/09/18 09:11 Dose: 1 amp Amlodipine Besylate (Norvasc -) 5 mg PO DAILY [facility] Last Admin: 10/09/18 09:10 Dose: 5 mg Enoxaparin Sodium (Lovenox -) 40 mg SQ BID [facility] Last Admin: 10/09/18 09:11 Dose: 40 mg Fenofibric Acid (Trilipix -) 135 mg PO DAILY [facility] Last Admin: 10/09/18 09:11 Dose: 135 mg Famotidine/Sodium Chloride (Pepcid 20 Mg Premixed Ivpb -) 20 mg in 50 mls @ 100 mls/hr IVPB BID [facility] Last Admin: 10/09/18 09:07 Dose: 100 mls/hr Sodium Chloride (Normal Saline -) 1,000 mls @ 75 mls/hr IV ASDIR [facility] Last Admin: 10/08/18 14:40 Dose: 75 mls/hr Lisinopril (Prinivil) 20 mg PO DAILY [facility] Last Admin: 10/09/18 09:11 Dose: 20 mg Metoclopramide HCl (Reglan Injection -) 10 mg IVPUSH Q6H [facility] Last Admin: 10/09/18 06:29 Dose: 10 mg Non-Formulary Medication (Fluticasone/Vilanterol [Breo Ellipta 100-25 Mcg Inh]) 100 mcg PO DAILY [facility] Ondansetron HCl (Zofran Injection) 4 mg IVPUSH Q4H [facility] Last Admin: 10/09/18 09:07 Dose: 4 mg Oxycodone/Acetaminophen (Percocet 5/325 -) 1 combo PO Q4H PRN PRN Reason: PAIN 4-10 Last Admin: 10/09/18 11:58 Dose: 1 combo Tiotropium [place] (Spiriva Respimat) 2 puff IH DAILY [facility] Last Admin: 10/09/18 09:20 Dose: 2 puff - Objective Vital Signs: Vital Signs Temperature 98.3 F 10/09/18 10:00 Pulse Rate 75 10/09/18 10:00 Respiratory Rate 19 10/09/18 10:00 Blood Pressure 119/62 10/09/18 10:00 O2 Sat by Pulse Oximetry (%) 92 L 10/09/18 10:00 Labs: CBC, BMP 10/07/18 06:30 10/07/18 06:30 Problem List - Problems (1) Hypoxemia Code(s): R09.02 - HYPOXEMIA (2) Hyperlipidemia Code(s): E78.5 - HYPERLIPIDEMIA, UNSPECIFIED Qualifiers: Hyperlipidemia type: unspecified Qualified Code(s): E78.5 - Hyperlipidemia , unspecified (3) Hypertension Code(s): I10 - ESSENTIAL (PRIMARY) HYPERTENSION Qualifiers: Hypertension type: unspecified Qualified Code(s): I10 - Essential (primary ) hypertension (4) Morbid obesity due to excess calories Code(s): E66.01 - MORBID (SEVERE) OBESITY DUE TO EXCESS CALORIES Assessment/Plan IMP HYPOXEMIA LIKELY SECONDARY TO POST-OP ATELECTASIS MORBID OBESITY S/P LAP SLEEVE DEOBRAH TOBACCO ABUSE PLAN INCENTIVE SPIROMETER INHALED BRONCHODILATORS O2 BIPAP AT NIGHT AND PRN DVT PROPHYLAXIS ABG OUTPATIENT LOW DOSE CHEST CT FOR LUNG CANCER SCREENING DR BARRON Problem List - Problems (1) Hypoxemia Code(s): R09.02 - HYPOXEMIA (2) Hyperlipidemia Code(s): E78.5 - HYPERLIPIDEMIA, UNSPECIFIED Qualifiers: Hyperlipidemia type: unspecified Qualified Code(s): E78.5 - Hyperlipidemia , unspecified (3) Hypertension Code(s): I10 - ESSENTIAL (PRIMARY) HYPERTENSION Qualifiers: Hypertension type: unspecified Qualified Code(s): I10 - Essential (primary ) hypertension (4) Morbid obesity due to excess calories Code(s): E66.01 - MORBID (SEVERE) OBESITY DUE TO EXCESS CALORIES
== END 2018-10-09 13:35 | disposition home or self-care (01) | DRG 403 ==
LOC: FM/S 07:36
PROVIDERS: ADMIT Surgery; ATTEND Surgery
PROC: 0DJ08ZZ Inspection of Upper Intestinal Tract, Via Natural or Artificial Opening Endoscopic (ICD-10-PCS; 2018-10-06)
PROC: 0DB64Z3 Excision of Stomach, Percutaneous Endoscopic Approach, Vertical (ICD-10-PCS; principal; 2018-10-06 10:46)
PROC: 0FB24ZX Excision of Left Lobe Liver, Percutaneous Endoscopic Approach, Diagnostic (ICD-10-PCS; 2018-10-06 10:46)
DX: E66.01 Morbid (severe) obesity due to excess calories (principal); Z68.41 Body mass index [BMI] 40.0-44.9, adult; R16.0 Hepatomegaly, not elsewhere classified; I10 Essential (primary) hypertension; E78.5 Hyperlipidemia, unspecified; G47.33 Obstructive sleep apnea (adult) (pediatric); R09.02 Hypoxemia; F17.210 Nicotine dependence, cigarettes, uncomplicated; J95.89 Other postprocedural complications and disorders of respiratory system, not elsewhere classified; J98.11 Atelectasis; Y83.8 Other surgical procedures as the cause of abnormal reaction of the patient, or of later complication, without mention of misadventure at the time of the procedure; J44.9 Chronic obstructive pulmonary disease, unspecified
CPT/HCPCS: 36415; 36600; 71046-TC-FY; 74241-TC-FY; 76000-TC-FY; 80053; 82803; 85027; 86803; 87389; 88305-TC; 94640; 94660; 94760; 94761; J0131; J7030